=== PATIENT | male | born 1995 | race Caucasian/White ===

== ENCOUNTER 2018-08-18 20:04 | Emergency (ER) | payer SELFPAY ==
[~2018-08-18] VITALS: Ht 167.6 cm; Wt 59.0 kg
[2018-08-18 20:21] VITALS: BP 132/65
[2018-08-18] MEDS ORDERED: DIPHTH,PERTUSS(ACELL),TET TOX 0.5 ML DISP.SYRIN. VAX IM ONE (21:00)
--- NOTE | 2018-08-18 21:06 | ED.ADGEN ---
Past History Past Medical History: No Pertinent History Past Surgical History: No Surgical History Additional Smoking Information: 1 PPD Alcohol Use: None Drug Use: None Adult General Chief Complaint Chief Complaint ".. I accidently put my Rt hand thru. a window yesterday.. It still hurts today... " HPI HPI Patient is a 23 year old male who presents with above hx and laceration 4 cm dorsum side of right hand. Laceration is gaping. Ligaments and tendons are not exposed. Does have distal sensation and range of motion. Patient's history is somewhat limited about how he put his fist through a window. Laceration occurred within 24 hours ago. Patient has not cleaned the laceration. Patient does not remember his last tetanus shot. Patient is right- hand dominant. Patient does not follow-up primary care. Patient is in patient and does not wish to wait for care. The patient agreed to cleaning of his laceration and receiving antibiotics. Patient has previously fractured right hand with similar type punching injury. Review of Systems Review of Systems Constitutional: Denies fever or chills [] Eyes: Denies change in visual acuity, redness, or eye pain [] HENT: Denies nasal congestion or sore throat [] Respiratory: Denies cough or shortness of breath [] Cardiovascular: No additional information not addressed in HPI [] GI: Denies abdominal pain, nausea, vomiting, bloody stools or diarrhea [] : Denies dysuria or hematuria [] Musculoskeletal: Denies back pain or joint pain [] Integument: Denies rash or skin lesions []complains of laceration to right hand Neurologic: Denies headache, focal weakness or sensory changes [] Endocrine: Denies polyuria or polydipsia [] All other systems were reviewed and found to be within normal limits, except as documented in this note. Family History Family History Noncontributory Current Medications Current Medications Current Medications Medications (Trade) Dose Ordered Sig/Leonard Start Time Stop Time Status Last Admin Dose Admin Bacitracin (Bacitracin Topical Pkt) 1 pkt STK-MED ONCE 08/18/18 21:59 08/18/18 22:00 DC Ceftriaxone Sodium (Rocephin Im) 1 gm 1X ONCE 08/18/18 21:15 08/18/18 21:16 DC 08/18/18 21:17 1 GM Ceftriaxone Sodium (Rocephin) 1 gm STK-MED ONCE 08/18/18 21:11 08/18/18 21:12 DC Diphtheria/ Tetanus/Acell Pertussis (Boostrix) 0.5 ml ONCE ONCE 08/18/18 21:00 08/18/18 21:01 DC 08/18/18 20:47 0.5 ML Ketorolac Tromethamine (Toradol Im) 60 mg 1X ONCE 08/18/18 21:15 08/18/18 21:16 DC 08/18/18 21:18 60 MG Allergies Allergies Allergies Coded Allergies Type Severity Reaction Last Updated Verified No Known Allergies Allergy Unknown 08/18/18 Yes Physical Exam Physical Exam Constitutional: Well developed, well nourished, moderately acute distress, non- toxic appearance. [] HENT: Normocephalic, atraumatic, bilateral external ears normal, oropharynx moist, no oral exudates, nose normal. []Poor dentition Eyes: PERRLA, EOMI, conjunctiva normal, no discharge. [] Neck: Normal range of motion, no tenderness, supple, no stridor. [] Cardiovascular:Heart rate regular rhythm, no murmur [] Lungs & Thorax: Bilateral breath sounds equal at apex auscultation [] Abdomen: Bowel sounds normal, soft, no tenderness, no masses, no pulsatile masses. [] Skin: Warm, dry, no erythema, no rash. [] Laceration to right hand as per history of present illness Back: No tenderness, no CVA tenderness. [] Extremities: No tenderness, no cyanosis, no clubbing, ROM intact, no edema. [] Neurologic: Alert and oriented X 3, normal motor function, normal sensory function, no focal deficits noted. [] Psychologic: Affect anxious, argumentative and uncooperative with his care, judgement normal, mood normal. [] Current Patient Data Vital Signs Vital Signs Date Time Temp Pulse Resp B/P (MAP) Pulse Ox O2 Delivery O2 Flow Rate FiO2 08/18/18 20:21 93 18 99 Room Air EKG EKG [] Radiology/Procedures Radiology/Procedures My interpretation of hand x-ray shows possible foreign body. No obvious fracture dislocation. [] Course & Med Decision Making Course & Med Decision Making Pertinent Labs and Imaging studies reviewed. (See chart for details) Laceration- laceration cleaned extensively with Betadine and normal saline in range of motion. Foreign body not readily visible on exam. Patient did not wish to wait for attempted removal further exploration of wound.. Laceration addressed with antibiotic ointment. Patient given a IM injection of Rocephin and started on Keflex 500 x3 times a day. Patient warned that he may have a retained foreign body. Patient advised must keep laceration clean and dry. Return if any concerns. Tylenol and ibuprofen for pain [] Final Impression Final Impression 1. 4 cm Laceration Dorsal Rt. hand[]-wound was not closed due to delay in presentation to the emergency department- Dragon Disclaimer Dragon Disclaimer This electronic medical record was generated, in whole or in part, using a voice recognition dictation system. XIMENA IRIZARRY MD Aug 18, 2018 21:06
[2018-08-18] MEDS ORDERED: CEPH-264 PO (21:08)
[2018-08-18] MEDS ORDERED: cefTRIAXone SODIUM 1 GM VIAL IV ONE (21:11)
[2018-08-18] MEDS ORDERED: KETOROLAC 60 MG/2 ML VIAL. IM ONE (21:15)
[2018-08-18] MEDS ORDERED: cefTRIAXone IM 1 GM VIAL IM ONE (21:15)
--- NOTE | 2018-08-18 21:57 | RAD ---
Indication:Right hand through glass 08/17/18, lacerations posterior side TECHNIQUE: 3 views of right hand COMPARISON: None FINDINGS/ impression: No acute fracture or dislocation. No radiopaque foreign body. No soft tissue emphysema. Electronically signed by: Rush Bautista DO (08/18/2018 9:53 PM) [facility]
[2018-08-18] MEDS ORDERED: BACITRACIN ZINC TOPICAL OINT PACKET. TP ONE (21:59)
== END 2018-08-18 22:05 | disposition home or self-care (01) ==
LOC: ER 20:04
DX: S61.411A Laceration without foreign body of right hand, initial encounter (principal); F17.200 Nicotine dependence, unspecified, uncomplicated; W26.8XXA Contact with other sharp object(s), not elsewhere classified, initial encounter; Y93.89 Activity, other specified; Y92.89 Other specified places as the place of occurrence of the external cause; Y99.8 Other external cause status
CPT/HCPCS: 73130; 90471; 90715; 96372; 99283; J0696; J1885

== ENCOUNTER 2020-02-17 20:53 | Emergency (ER) | payer SELFPAY ==
[~2020-02-17] VITALS: Ht 167.6 cm; Wt 59.0 kg
[2020-02-17 20:53] VITALS: BP 132/65
[~2020-02-17 20:53] MED LIST: CEPH-264 PO
--- NOTE | 2020-02-17 21:23 | PHYS DOC ---
Past History Past Medical History: No Pertinent History Past Surgical History: No Surgical History Smoking: Cigarettes Alcohol Use: None Drug Use: None, Heroin General Adult EDM: Chief Complaint: EYE PROBLEMS HPI: HPI: Patient is a 24 year old male who presents for evaluation of some clear drainage coming from both of his eyes. Patient has daily crusting as well. Symptoms been progressing for the past 2+ weeks. Patient is here with his domestic partner who has a similar infection but much worse. There is no reported fevers and chills. There is no reported vision changes. Review of Systems: Review of Systems: Constitutional: Denies fever or chills Eyes: Denies change in visual acuity, clear drainage and crusting both eyes HENT: Denies nasal congestion or sore throat Respiratory: Denies cough or shortness of breath Cardiovascular: Denies chest pain or edema GI: Denies abdominal pain, nausea, vomiting, bloody stools or diarrhea : Denies dysuria Musculoskeletal: Denies back pain or joint pain Integument: Denies rash Neurologic: Denies headache, focal weakness or sensory changes Endocrine: Denies polyuria or polydipsia Lymphatic: Denies swollen glands Psychiatric: Denies depression or anxiety Heart Score: Risk Factors: Risk Factors: DM, Current or recent (<one month) smoker, HTN, HLP, family history of CAD, obesity. Risk Scores: Score 0 - 3: 2.5% MACE over next 6 weeks - Discharge Home Score 4 - 6: 20.3% MACE over next 6 weeks - Admit for Clinical Observation Score 7 - 10: 72.7% MACE over next 6 weeks - Early Invasive Strategies Allergies: Allergies: Allergies Coded Allergies Type Severity Reaction Last Updated Verified No Known Allergies Allergy Unknown 08/18/18 Yes Physical Exam: PE: Constitutional: Well developed, well nourished, no acute distress, non-toxic appearance. [] HENT: Normocephalic, atraumatic, bilateral external ears normal, oropharynx moist, no oral exudates, nose normal. [] Eyes: PERRL, EOMI, conjunctiva normal, scant bilateral clear eye drainage, some crusting around right eye, vision essentially normal [] Neck: Normal range of motion, no tenderness, supple, no stridor. [] Cardiovascular:Heart rate regular rhythm, no murmur [] Lungs & Thorax: Bilateral breath sounds clear to auscultation [] Abdomen: Bowel sounds normal, soft, no tenderness, no masses, no pulsatile masses. [] Skin: Warm, dry, no erythema, no rash. [] Back: No tenderness, no CVA tenderness. [] Extremities: No tenderness, no cyanosis, no clubbing, ROM intact, no edema. [] Neurologic: Alert and oriented X 3, normal motor function, normal sensory function, no focal deficits noted. [] Psychologic: Affect normal, judgement normal, mood normal. [] Current Patient Data: Vital Signs: Vital Signs Date Time Temp Pulse Resp B/P (MAP) Pulse Ox O2 Delivery O2 Flow Rate FiO2 02/17/20 20:53 97.9 89 20 132/65 (87) 99 Room Air EKG: EKG: [] Radiology/Procedures: Radiology/Procedures: [] Course & Med Decision Making: Course & Med Decision Making Pertinent Labs and Imaging studies reviewed. (See chart for details) [] Dragon Disclaimer: Dragon Disclaimer: This electronic medical record was generated, in whole or in part, using a voice recognition dictation system. 2119 stable, conjunctivitis that is bilateral will be treated with erythromycin ointment. Patient is to use a half an inch both lower lids 4 times a day for the next 5 days Departure Departure: Impression: Primary Impression: Bilateral conjunctivitis Qualified Codes: H10.33 - Unspecified acute conjunctivitis, bilateral Disposition: HOME/RESIDENCE PRIOR TO ADM Condition: STABLE Referrals: PCP,NO (PCP) PREMA CRAFT MD Patient Instructions: Bacterial Conjunctivitis, [id number] Additional Instructions: Use erythromycin ointment 4 times a day for the next 5 days, it is 1/4 inch on each lower eyelid. You should see a family doctor or eye doctor for recheck in the next couple days to make sure this infection clears Justification of Admission: Justification of Admission: Justification of Admission Dx: N/A LIN BRADLEY DO Feb 17, 2020 21:23
[2020-02-17] MEDS ORDERED: ERYTHROMYCIN 0.5% OPHTH OINTMENT 1GM TUBE. OU ONE ×2 (21:30)
== END 2020-02-17 21:24 | disposition home or self-care (01) ==
LOC: ER 20:53
DX: H10.33 Unspecified acute conjunctivitis, bilateral (principal); F17.210 Nicotine dependence, cigarettes, uncomplicated
CPT/HCPCS: 99283